=== PATIENT | female | born 1935 | race Caucasian/White ===

== ENCOUNTER 2019-09-13 13:52 | Inpatient (IN) | payer MEDICARE ==
[2019-09-13] MEDS ORDERED: SODIUM CHLORIDE 0.9% 500 ML 500 ML IV STA (14:54)
[2019-09-13 15:14] LABS: Basophils % (A) 0 %; Eosinophils # (A) 0.1 k/uL (0-0.7); Eosinophils % (A) 1 %; HCT 33.3 % (34.0-46.0); HGB 10.9 gm/dL (11.4-16.0); Lymphocytes # (A) 1.1 k/uL (1.0-4.8); Lymphocytes % (A) 11 %; MCH 29.2 pg (25.0-35.0); MCHC 32.7 g/dL (31.0-37.0); MCV 89.5 fL (80.0-100.0); Mean Platelet Volume 7.9; Monocytes # (A) 0.4 k/uL (0-1.0); Monocytes % (A) 5 %; Neutrophils # (A) 7.6 k/uL (1.3-7.7); Neutrophils % (A) 81 %; Platelet Count 306 k/uL (150-450); RBC 3.72 m/uL (3.80-5.40); RDW 14.2 % (11.5-15.5); WBC 9.5 k/uL (3.8-10.6)
--- NOTE | 2019-09-13 15:16 | ED ---
General Adult HPI <Danny Covarrubias - Last Filed: 09/13/19 16:59> - General Source: patient, family Mode of arrival: wheelchair Limitations: no limitations <Hilda Noguera - Last Filed: 09/13/19 17:43> - General Chief complaint: Extremity Problem,Nontraumatic Stated complaint: leg swelling Time Seen by Provider: 09/13/19 14:13 - History of Present Illness Initial comments: Patient is an 84-year-old female, with history of Alzheimer's, presenting to the emergency department with her and daughter with complaints of a possible UTI as well as continued hip pain from a fall 3 weeks ago. History is obtained from patient's daughter and . Patient and were down in [place] approximately 3 weeks ago when patient had a series of 3 falls within one night. She was then admitted to local hospital for proximally 5 days for a UTI. states he thinks they did imaging of her hips and knees which showed no acute abnormalities. Patient has been receiving physical therapy at her house and she's been back home. She was able to walk on her own prior to this fall however since this fall she has not been able to walk. She is able to stand up with a walker and take a few small steps but that is it. She has had no other falls since then. The patient recently had lab work done approximately 5 days ago and it was revealed she had a UTI however she has not been treated with antibiotics yet. and daughter brings patient in today for continued hip pain as well as UTI. She has not been having fevers, no nausea or vomiting. She denies a headache. At rest, patient denies any pain anywhere. There are no other complaints at this time. Upon arrival to the ER, vital signs are stable. (Hilda Noguera) - Related Data Allergies Allergy/AdvReac Type Severity Reaction Status Date / Time No Known Allergies Allergy Verified 09/13/19 14:05 Review of Systems ROS Other: All systems not noted in ROS Statement are negative. <Danny Covarrubias - Last Filed: 09/13/19 16:59> ROS Other: All systems not noted in ROS Statement are negative. <Hilda Noguera - Last Filed: 09/13/19 17:43> ROS Statement: Those systems with pertinent positive or pertinent negative responses have been documented in the HPI. Past Medical History Past Medical History: Hypertension History of Any Multi-Drug Resistant Organisms: None Reported Additional Past Surgical History / Comment(s): thyroid removal, breast lump removed Past Psychological History: No Psychological Hx Reported Smoking Status: Former smoker Past Alcohol Use History: None Reported Past Drug Use History: None Reported <Hilda Noguera - Last Filed: 09/13/19 17:43> General Exam Limitations: no limitations <Hilda Noguera - Last Filed: 09/13/19 17:43> - General Exam Comments Initial Comments: GENERAL: Well-appearing, well-nourished and in no acute distress. HEAD: Atraumatic, normocephalic. EYES: Pupils equal round and reactive to light, extraocular movements intact, sclera anicteric, conjunctiva are normal. ENT: TMs normal, nares patent, oropharynx clear without exudates. Moist mucous membranes. NECK: Normal range of motion, supple without lymphadenopathy or JVD. LUNGS: Breath sounds clear to auscultation bilaterally and equal. No wheezes rales or rhonchi. HEART: Regular rate and rhythm without murmurs, rubs or gallops. ABDOMEN: Soft, nontender, normoactive bowel sounds. No guarding, no rebound. No masses appreciated. : Deferred EXTREMITIES: No pain with palpation of bilateral knees or upper legs. Mild pain with pressure of the left and right hip. Patient does have full range of motion of both knees. Full range of motion of left hip. Pain with range of motion of the right hip. There is a notable leg leg difference with the right side elevated more than the left. No pitting or edema. No clubbing or cyanosis. NEUROLOGICAL: Normal speech. PSYCH: Normal mood, normal affect. SKIN: Warm, Dry, normal turgor, no rashes or lesions noted. (Hilda Noguera) Course Vital Signs 09/13/19 09/13/19 14:00 17:11 Temperature 98.0 F 98.2 F Pulse Rate 72 74 Respiratory 16 16 Rate Blood Pressure 127/72 133/76 O2 Sat by Pulse 98 96 Oximetry Medical Decision Making - Lab Data Result diagrams: 09/13/19 14:55 09/13/19 14:55 <Danny Covarrubias - Last Filed: 09/13/19 16:59> - Lab Data Result diagrams: 09/13/19 14:55 09/13/19 14:55 <Hilda Noguera - Last Filed: 09/13/19 17:43> - Medical Decision Making 84-year-old female with fall which occurred approximately 3 weeks ago. Patient has right femoral neck fracture which does appear old on x-ray. I discussed case both with orthopedics Dr. Lopez as well as her covering for [facility] physician Dr. Galloway. Patient will be admitted to orthopedics with internal medicine on consult. (Danny Covarrubias) Patient is an 84-year-old female presenting for a possible UTI as well as hip pain. Patient a fall 3 weeks ago in [place]. She's been receiving at home PT without improvement in her symptoms. As she has been unable to ambulate on her own. Vital signs are stable. On exam patient has a notable labeling difference with elevation of the right side. X-rays reveal a right femoral neck fracture. Recent urine cultures were reviewed and shows a positive UTI. Patient was started on 1 g of Rocephin as she has not been treated for this yet. Patient was also given pain medicine. Case was discussed with Dr. Covarrubias. Patient will be admitted under Dr. Lopez with consult to medicine. Patient and are in agreement with this plan of care. We will continue with antibiotics for UTI as well as pain control. (Hilda Noguera) - Lab Data Lab Results 09/13/19 09/13/19 Range/Units 14:55 14:55 WBC 9.5 (3.8-10.6) k/uL RBC 3.72 L (3.80-5.40) m/uL Hgb 10.9 L (11.4-16.0) gm/dL Hct 33.3 L (34.0-46.0) % MCV 89.5 (80.0-100.0) fL MCH 29.2 (25.0-35.0) pg MCHC 32.7 (31.0-37.0) g/dL RDW 14.2 (11.5-15.5) % Plt Count 306 (150-450) k/uL Neutrophils % 81 % Lymphocytes % 11 % Monocytes % 5 % Eosinophils % 1 % Basophils % 0 % Neutrophils # 7.6 (1.3-7.7) k/uL Lymphocytes # 1.1 (1.0-4.8) k/uL Monocytes # 0.4 (0-1.0) k/uL Eosinophils # 0.1 (0-0.7) k/uL Basophils # 0.0 (0-0.2) k/uL Sodium 137 (137-145) mmol/L Potassium 4.8 (3.5-5.1) mmol/L Chloride 106 (98-107) mmol/L Carbon Dioxide 26 (22-30) mmol/L Anion Gap 5 mmol/L BUN 20 H (7-17) mg/dL Creatinine 0.86 (0.52-1.04) mg/dL Est GFR (CKD-EPI)AfAm 72 (>60 ml/min/1.73 sqM) Est GFR (CKD-EPI)NonAf 62 (>60 ml/min/1.73 sqM) Glucose 107 H (74-99) mg/dL Calcium 9.4 (8.4-10.2) mg/dL Total Bilirubin 0.5 (0.2-1.3) mg/dL AST 41 H (14-36) U/L ALT 32 (4-34) U/L Alkaline Phosphatase 85 (38-126) U/L Total Protein 6.1 L (6.3-8.2) g/dL Albumin 3.4 L (3.5-5.0) g/dL Disposition <Danny Covarrubias - Last Filed: 09/13/19 16:59> Decision Date: 09/13/19 Decision Time: 17:04 <Hilda Noguera - Last Filed: 09/13/19 17:43> Clinical Impression: Fracture, intertrochanteric, right femur, UTI (urinary tract infection) Disposition: ADMITTED IP TO THIS [facility] Condition: Stable
[2019-09-13 15:19] LABS: Albumin 3.4 g/dL (3.5-5.0); Calcium 9.4 mg/dL (8.4-10.2); Potassium 4.8 mmol/L (3.5-5.1); Total Bilirubin 0.5 mg/dL (0.2-1.3); Total Protein 6.1 g/dL (6.3-8.2)
[2019-09-13] MEDS ORDERED: cefTRIAXone IN SWFI 1,000 MG/10 ML SYRINGE IVP STA (15:24)
--- NOTE | 2019-09-13 15:59 | XR ---
EXAMINATION TYPE: XR pelvis AP view, XR Hip Bilateral Complete DATE OF EXAM: 09/13/2019 CLINICAL HISTORY: Pain and fall 3 weeks ago TECHNIQUE: A single AP view of the pelvis is obtained. Views of the bilateral hips were also obtained . COMPARISON: None. FINDINGS: There is an impacted right intertrochanteric hip fracture with cephalad displacement of the distal fracture fragment nearly 1 cm and 1.1 cm foreshortening. This appears noncomminuted. The left hip appears intact. There is diffuse osseous demineralization. No additional pelvic fracture is seen . Moderate bilateral arthropathy of the hips. IMPRESSION: Acute, impacted, foreshortened, cranially displaced right intertrochanteric noncomminuted hip fracture.
--- NOTE | 2019-09-13 15:59 | XR ---
EXAMINATION TYPE: XR chest 1V DATE OF EXAM: 09/13/2019 COMPARISON: NONE HISTORY: Fall with subsequent chest pain TECHNIQUE: Single frontal view of the chest is obtained. FINDINGS: There is diffuse osseous demineralization. There is no focal air space opacity, pleural ef fusion, or pneumothorax seen. The cardiac silhouette size is mildly enlarged. The osseous structur es are intact. Slight right hemidiaphragm elevation is incidentally noted and may be physiologic. IMPRESSION: No acute process.
[2019-09-13] MEDS ORDERED: MORPHINE SULFATE 4 MG/ML SYRINGE IVP STA (16:20)
[2019-09-13] MEDS ORDERED: ONDANSETRON 4 MG/2 ML VIAL IVP STA (16:20)
[2019-09-13] MEDS ORDERED: ONDANSETRON 4 MG/2 ML VIAL IVP PRN (17:00)
[2019-09-13] MEDS ORDERED: NALOXONE 0.4 MG/ML 1 ML VIAL IV PRN (17:00)
[2019-09-13] MEDS ORDERED: traMADol 50 MG TAB PO PRN (17:00)
[2019-09-13] MEDS ORDERED: MORPHINE SULFATE 4 MG/ML SYRINGE IV PRN (17:00)
[2019-09-13] MEDS ORDERED: SODIUM CHLORIDE 0.9% 1,000 ML IV SCH (17:00)
[2019-09-13] MEDS ORDERED: ACETAMINOPHEN TAB 325 MG TAB PO PRN (17:00)
[2019-09-13 17:24] LABS: Amorphous Sediment,Urine Rare /hpf; Appearance,Urine Clear (Clear); Bilirubin,Urine Negative (Negative); Blood,Urine Negative (Negative); Color,Urine Yellow; Glucose,Urine (UA) Negative (Negative); Ketones,Urine Negative (Negative); Leukocyte Esterase,Urine Trace (Negative); Mucus,Urine Rare /hpf; Nitrite,Urine Negative (Negative); PH, Urine 5.5 (5.0-8.0); Protein,Urine Negative (Negative); RBC,Urine 1 /hpf (0-5); Specific Gravity,Urine 1.018 (1.001-1.035); Squamous Epithelial Cell,Urine 1 /hpf (0-4); Urobilinogen,Urine <2.0 mg/dL (<2.0); WBC,Urine 1 /hpf (0-5)
--- NOTE | 2019-09-13 18:29 | P.HPOR ---
History of Present Illness H&P Date: 09/13/19 This patient is an 84-year-old female with past medical history of Alzheimer's that presented to [facility] ER today with her and daughter with complaints of right lower extremity pain and swelling, as well as a possible UTI. All history is obtained from the patient's and daughter, who are bedside. The patient's daughter states that 3 weeks ago, while the patient was in [place], the patient fell 3 different times within one day. The patient states he was present during these falls, and after the third fall she was unable to ambulate. Therefore, the patient's called EMS. She was taken to a hospital in [place], where the patient was admitted. The patient's family states they believe that x-rays were performed at this hospital admission, although they are unsure. The patient was discharged from this hospital stay with home physical therapy. The patient's daughter and states she has been unable to ambulate following this fall 3 weeks ago. She has been requiring assistance for transfers and has been using a wheelchair. She is ambulatory at baseline and does not require use of a walker or cane. The patient's daughter states her home physical therapist had mentioned yesterday that her right lower extremity appeared shortened. The patient's family called her primary care physician today, and it was recommended that she present to the emergency department for evaluation. On arrival to the emergency department, x- rays were taken of the right hip and revealed a right hip fracture. The patient was admitted under the care of Dr. Lopez with consult a placed to internal medicine for medical management and clearance. At the time of my exam, the patient states her right hip is mildly painful. There are no additional complaints. Vital signs stable. Past Medical History Past Medical History: Hypertension History of Any Multi-Drug Resistant Organisms: None Reported Additional Past Surgical History / Comment(s): thyroid removal, breast lump removed Past Psychological History: No Psychological Hx Reported Smoking Status: Former smoker Past Alcohol Use History: None Reported Past Drug Use History: None Reported Medications and Allergies Allergies Allergy/AdvReac Type Severity Reaction Status Date / Time No Known Allergies Allergy Verified 09/13/19 14:05 Physical Examination On examination, the patient is lying in bed in no apparent distress. Family is bedside. Her head appears normocephalic and atraumatic. Her breathing appears nonlabored. On inspection of the bilateral upper extremities, there is no obvious deformity or signs of trauma. On inspection of the right lower extremity, there is increased swelling compared to the contralateral leg. There is mild pain on palpation of the right hip. No pain on palpation of the knee, lower leg, ankle. No pain on palpation of the calf. Right lower extremity is warm and well-perfused, with brisk capillary refill distally. Dorsalis pedis pulse palpable. Patient has good strength and range of motion of her bilateral ankles. Motor and sensory function appear to be intact of the right lower ext remity. Results Right hip x-ray 09/13/2019: Displaced femoral neck fracture - Labs Labs: Abnormal Lab Results - Last 24 Hours (Table) 09/13/19 09/13/19 09/13/19 Range/Units 14:55 14:55 17:05 RBC 3.72 L (3.80-5.40) m/uL Hgb 10.9 L (11.4-16.0) gm/dL Hct 33.3 L (34.0-46.0) % BUN 20 H (7-17) mg/dL Glucose 107 H (74-99) mg/dL AST 41 H (14-36) U/L Total Protein 6.1 L (6.3-8.2) g/dL Albumin 3.4 L (3.5-5.0) g/dL Ur Leukocyte Esterase Trace H (Negative) Amorphous Sediment Rare H (None) /hpf Urine Mucus Rare H (None) /hpf H & H 09/13/19 Range/Units 14:55 Hgb 10.9 L (11.4-16.0) gm/dL Hct 33.3 L (34.0-46.0) % Result Diagrams: 09/13/19 14:55 09/13/19 14:55 Assessment and Plan Assessment: Displaced right femoral neck fracture Plan: - I discussed the clinical and imaging findings with the patient, her daughter, and her . We discussed nonoperative versus operative treatment, and the patient's family would like to move forward with operative treatment at this time. Therefore a right hip hemiarthroplasty is recommended. We will plan for surgery tomorrow afternoon with Dr. Lopez, pending medical clearance and consent. - Strict nonweightbearing of the right lower extremity. - PRN pain management. - NPO diet at midnight. Patient discussed with Dr. Lopez.
[2019-09-13 21:09] LABS: INR 0.9 (<1.2); Prothrombin Time 9.7 sec (9.0-12.0)
[2019-09-14] MEDS: LOSARTAN 50 MG TAB PO SCH (08:38)
[2019-09-14] MEDS: PRAVASTATIN SODIUM 20 MG TAB PO SCH (08:38)
[2019-09-14] MEDS: DONEPEZIL 5 MG TAB PO SCH (09:06)
--- NOTE | 2019-09-14 09:24 | P.CONS ---
History of Present Illness - Reason for Consult Consult date: 09/14/19 Medical management - History of Present Illness This is an 84-year-old female patient of Dr. Christine with past mental history of Alzheimer's dementia, hypertension, hyperlipidemia, hypothyroidism, vitamin D deficiency. Patient was staying in [facility] 3 weeks ago she had 3 falls at different times during the day. The patient's was present during these falls. On the third fall she was unable to ambulate. Patient was taken by ambulance to the hospital for evaluation. X-rays were done but nothing was reported abnormal and patient was treated for urinary tract infection now, 3 weeks later, patient is back in [place] and she continues to require assistance for transfers and has been using a wheelchair. Normally she is ambulatory without wheelchair walker or cane. Patient has home care in place and physical therapist noticed that her right leg was shortened and patient's family contacted their PCP and was recommended the patient come into the hospital for evaluation. X-ray of the right hip revealed a right hip fracture. Chest x-ray showed no acute cardio pulmonary process. WBC 9.5, hemoglobin 10.9, platelet count 306, INR 0.9, BUN 20 creatinine 0.86, left lites within normal limits, AST 41, albumin 3.4, blood sugar 107, urinalysis negative for infection. Patient was found to be afebrile, heart rate 71, blood pressure 117/70 pulse ox 94% on room air. At the time of evaluation, patient is resting in bed and appears to be comfortable. She denies having any pain at this time and is able to answer simple questions appropriately but unable to provide history. Patient is currently living at home with her . EKG is a sinus rhythm with left axis deviation. Patient started on Lopressor 25 mg twice daily. Review of Systems Constitutional: Denies chills, Denies fever, Denies poor appetite Eyes: denies blurred vision, denies pain Ears, nose, mouth and throat: Denies dental pain, Denies headache, Denies nasal congestion, Denies nasal discharge, Denies sore throat, Denies vertigo Cardiovascular: Denies chest pain, Denies decreased exercise tolerance, Denies dyspnea on exertion, Denies leg edema, Denies orthopnea, Denies shortness of breath Respiratory: Denies cough, Denies cough with sputum, Denies dyspnea, Denies ex cessive sputum, Denies hemoptysis, Denies home oxygen, Denies wheezing Gastrointestinal: Denies abdominal pain, Denies loss of appetite, Denies nausea, Denies vomiting Genitourinary: Denies dysuria, Denies hematuria Musculoskeletal: Reports frequent falls, Reports gait dysfunction, Reports muscle weakness, Denies myalgias Integumentary: Denies pruritus, Denies rash, Denies wounds Neurological: Reports gait dysfunction, Denies change in mentation, Denies change in speech, Denies numbness, Denies seizures, Denies weakness Psychiatric: Denies anxiety, Denies depression Endocrine: Denies fatigue, Denies weight change Past Medical History Past Medical History: Dementia, Hyperlipidemia, Hypertension, Thyroid Disorder History of Any Multi-Drug Resistant Organisms: None Reported Additional Past Surgical History / Comment(s): thyroid removal, breast lump removed Past Anesthesia/Blood Transfusion Reactions: No Reported Reaction Past Psychological History: No Psychological Hx Reported Smoking Status: Former smoker Past Alcohol Use History: None Reported Past Drug Use History: None Reported - Past Family History Mother Family Medical History: Cancer Additional Family Medical History / Comment(s): Mother in her late 70s with history of colon cancer and lung cancer. Father Family Medical History: Myocardial Infarction (ID) Additional Family Medical History / Comment(s): Father at age 48 from a myocardial infarction. Brother(s) Additional Family Medical History / Comment(s): Patient had 3 brothers and one at age 48 from myocardial infarction, one from diabetes complication of one from some type of cancer. Sister(s) Additional Family Medical History / Comment(s): Patient had 3 sisters all . One from Alzheimer's dementia, one from CVA complication with history of Alzheimer's and a third one from Alzheimer's. Daughter(s) Additional Family Medical History / Comment(s): Patient has a total of 4 children, 2 sons and 2 daughters with no major medical problems. Medications and Allergies Home Medications Medication Instructions Recorded Confirmed Type Cholecalciferol (Vitamin D3) 2,000 unit PO DAILY 09/13/19 09/13/19 History [Vitamin D3] Donepezil [Aricept] 5 mg PO DAILY 09/13/19 09/13/19 History Levothyroxine Sodium [Synthroid] 25 mcg PO DAILY 09/13/19 09/13/19 History Losartan Potassium 100 mg PO DAILY 09/13/19 09/13/19 History OLANZapine [ZyPREXA] 2.5 mg PO AC-SUPPER 09/13/19 09/13/19 History Pravastatin Sodium [Pravachol] 20 mg PO DAILY 09/13/19 09/13/19 History amLODIPine [Norvasc] 5 mg PO DAILY 09/13/19 09/13/19 History Allergies Allergy/AdvReac Type Severity Reaction Status Date / Time No Known Allergies Allergy Verified 09/14/19 13:27 Physical Exam Vitals: Vital Signs Temp Pulse Pulse Resp BP BP Pulse Ox 09/14/19 07:00 98.4 F 67 16 111/60 95 09/14/19 00:27 98.5 F 71 14 117/70 94 L 09/13/19 19:18 98.1 F 76 14 116/64 94 L 09/13/19 17:11 98.2 F 74 16 133/76 96 09/13/19 14:00 98.0 F 72 16 127/72 98 Intake and Output 09/13/19 09/14/19 09/14/19 22:59 06:59 14:59 Intake Total 175 Output Total 325 Balance 175 -325 Intake: Intake, IV Titration 175 Amount Sodium Chloride 0.9% 1, 175 000 ml @ 50 mls/hr IV . Q20H [facility] Rx#:[id number] Output: Urine 325 Other: Voiding Method Indwelling Catheter Weight 68.039 kg Gen: This is an 84-year-old female. Patient is resting in bed and appears to be comfortable and in no acute distress. HEENT: Head is atraumatic, normocephalic. Pupils equal, round. Sclerae is anicteric. Conjunctiva pink. Mucous members of the mouth are somewhat dry. Dentition is in fair order. NECK: Supple. No JVD. No lymphadenopathy. No thyromegaly. LUNGS: Clear to auscultation. No wheezes or rhonchi. No intercostal retractions. HEART: Regular rate and rhythm. No murmur. ABDOMEN: Soft. Bowel sounds are present. No masses. No tenderness. EXTREMITIES: No pedal edema. No calf tenderness. Right leg is externally rotated and shortened. Dorsalis pedis +1 bilaterally. NEUROLOGICAL: Patient is awake, alert and oriented to self only. Cranial nerves 2 through 12 are grossly intact. Results CBC & Chem 7: 09/14/19 17:25 09/13/19 14:55 Labs: Abnormal Lab Results - Last 24 Hours (Table) 09/13/19 09/13/19 09/13/19 Range/Units 14:55 14:55 17:05 RBC 3.72 L (3.80-5.40) m/uL Hgb 10.9 L (11.4-16.0) gm/dL Hct 33.3 L (34.0-46.0) % BUN 20 H (7-17) mg/dL Glucose 107 H (74-99) mg/dL AST 41 H (14-36) U/L Total Protein 6.1 L (6.3-8.2) g/dL Albumin 3.4 L (3.5-5.0) g/dL Ur Leukocyte Esterase Trace H (Negative) Amorphous Sediment Rare H (None) /hpf Urine Mucus Rare H (None) /hpf Assessment and Plan Plan: 1. Right hip fracture with plan for right hemiarthroplasty today. Continue current pain management, PT and OT per orthopedics, incentive spirometry if patient is able to follow instructions. Most likely patient will require subacute rehab at discharge. Patient has been cleared medically for surgical intervention 2. Hypertension. Continue losartan with parameters, hold amlodipine as patient is currently on the low side. 3. Hyperlipidemia. Continue statin. 4. Alzheimer's dementia. Continue Aricept. 5. Hypothyroidism. Continue levothyroxine. 6. Vitamin D deficiency. Continue supplement. 7. DVT prophylaxis. 8. GI prophylaxis. Pepcid. 9. Recent urinary tract infection, completed course of antibiotics. Patient will be admitted to the hospital for a minimum of 2 night stay. Discharge plan: Most likely subacute rehab Impression and plan of care have been directed as dictated by the signing physician. Tory Rubio nurse practitioner acting as scribe for signing physician.
[2019-09-14] MEDS: SODIUM CHLORIDE 0.9% 1,000 ML IV SCH ×2 (11:04→22:26)
[2019-09-14] MEDS: METOPROLOL TARTRATE 25 MG TAB PO SCH ×2 (12:49→22:26)
[2019-09-14] MEDS ORDERED: IV FLUID CONTINUATION 1,000 ML IV ONE (13:13)
[2019-09-14] MEDS ORDERED: ONDANSETRON 4 MG/2 ML VIAL IVP ONE (13:26)
[2019-09-14] MEDS ORDERED: DEXAMETHASONE SOD PHOSPHATE 10 MG/ML 1 ML VIAL IV ONE (13:27)
[2019-09-14] MEDS ORDERED: ceFAZolin 1,000 MG VIAL ONE (13:43)
[2019-09-14] MEDS ORDERED: MIDAZOLAM 2 MG/2 ML VIAL ONE (13:43)
[2019-09-14] MEDS ORDERED: ePHEDrine SULFATE/0.9% NACL/PF 50 MG/5 ML SYRINGE IV ONE (13:43)
[2019-09-14] MEDS ORDERED: PROPOFOL 10 MG/ML 20 ML VIAL IV ONE (13:43)
[2019-09-14] MEDS ORDERED: fentaNYL (PF) 50 MCG/ML 2 ML AMP ONE (13:43)
[2019-09-14] MEDS ORDERED: ceFAZolin 3,000 MG in SODIUM CHLORIDE 0.9% IRRIGATIO 3,000 ML IRRIGATION ONE (14:22)
[2019-09-14] MEDS ORDERED: LACTATED RINGERS 1,000 ML IV ONE (15:31)
[2019-09-14] MEDS ORDERED: HYDROmorphone 0.5 MG/0.5 ML SYRINGE IVP PRN ×3 (15:51)
[2019-09-14] MEDS ORDERED: HYDROcodone/APAP 5-325MG 1 EACH TAB PO PRN ×2 (15:51)
--- NOTE | 2019-09-14 16:06 | P.OP ---
Date of Procedure: 09/14/19 Preoperative Diagnosis: 1. Subacute right subcapital femoral neck fracture 2. Alzheimer's dementia Postoperative Diagnosis: Same Procedure(s) Performed: Cemented right hip hemiarthroplasty Anesthesia: spinal Surgeon: Karlos Lopez Sustainability Analyst #1: Peyton Ramirez Estimated Blood Loss (ml): 75 IV fluids (ml): 1,000 Urine output (ml): 250 Pathology: other (Femoral head to pathology) Condition: stable Disposition: PACU Indications for Procedure: The patient is very pleasant 84-year-old female with a medical history significant for Alzheimer's dementia who sustained a fall about 4 weeks ago while in [place]. She was admitted to the hospital with urinary tract infection and x-rays were normal. She is not able to walk since that time. She's had increasing pain and deformity in the right leg and she presented to the emergency department yesterday where x-rays showed a subacute appearing subcapital femoral neck fracture. She was admitted under my care and seen by internal medicine for preoperative clearance. I met with the family to discuss treatment options. My recommendation was to perform a cemented hemiarthroplasty. The patient and her family agreed to this. We discussed potential risks and complications of surgery including but not limited to risk of anesthesia, superficial infection, deep infection, delayed wound healing, intraoperative fracture, postoperative fracture, hip dislocation, limb length discrepancy, and inability to regain preinjury level of function, DVT, PE, other medical complications, and possibly loss of life. The patient and her family understand these Locations and also with knowledge that other less common competitions are possible. They provided their consent to go forward with surgery. Description of Procedure: The patient is in front operative holding and the correct right hip was marked with my initials. I reviewed the consent form with the patient and her family. All their questions were answered. The patient was then brought back to the operating room by anesthesia. She was positioned on the OR table where a spinal anesthetic and preoperative antibiotics were given. The patient was then carefully positioned in the lateral decubitus position with the right side up. She was secured to the OR table with a Montral frame. All bony prominences were well-padded including the fibular head. An axillary roll was placed. The right leg was then prepped and draped in standard sterile fashion using an Ioban impregnated adhesive. A timeout was then performed identifying the correct patient, operative extremity, and procedure. Next I began by outlining a standard approach with a skin marker for a posterolateral approach to the hip. Skin incision was made with a scalpel and dissection was carried down carefully through the subcutaneous tissue with electrocautery. The fascia lawanda was identified and incised distally in line with the skin incision and proximally the muscle fibers of gluteus lenny were bluntly dissected with my finger. A Charnley retractor was placed deep to the fascia lawanda. Remnants of the trochanteric bursa were elevated off the posterior femur with electrocautery. A right angle retractor was placed under the abductors and the leading edge of the piriformis tendon was identified. A medium Rincon elevator was used to develop the interval between the short external rotators and hip capsule. The short external rotators and piriformis were then released off the posterior femur using electrocautery. The posterior hip capsule was then teed. There was no hemarthrosis in the hip joint confirming a subacute fracture. The head was easily removed and handed off to the back table for was sized and sent to pathology. The proximal femur was then exposed. A neck cut was made 1 thumb breath above the lesser trochanter. A box osteotome was used to gain entrance to the canal taking care to stay lateral to avoid varus malpositioning of the stem. A canal finder was then placed down the shaft of the femur and I reamed up to an 11 mm reamer which engage the diaphysis of the femur. I then sequentially broached in 1 mm increments until an 11 mm broach felt stable. A calcar planar was used to bring the neck cut flush with the broach. I then attempted to reduce the hip with a negative offset head was unable to reduce the hip. Due to her hip fracture being subacute I decided to remove the 11 mm broach, countersink a 10 mm broach and bring the level of the neck cut down several millimeters. By doing this I was able to easily reduce a standard offset hip. It felt stable in all planes of motion. The hip was then carefully dislocated with a shoulder hook. A cement restrictor was placed 2 cm distal to the tip of the stem. The proximal femur was irrigated with a pulsatile lavage and brush. A moist Ray-Camila was placed in the acetabulum. Cement was then mixed and pressurized in the proximal femur. A 10 mm stem was dispensed and gently tapped into place. Appropriate version was held until the cement had hardened. All cement remnant was removed. I once again trialed with a standard offset 43 mm head which felt stable. The hip was dislocated one final time and a trial head was removed. The wound was thoroughly irrigated using sterile saline. The Munroe taper was dried with a clean sponge and the final head was gently tapped in place to engage the Munroe taper. The hip was carefully reduced and was felt to be stable. The posterior hip capsule was closed with interrupted 0 Vicryl. The piriformis and short external rotators were repaired to the posterior femur using #2 Ethibond. The fascia lawanda was closed with a running Quill suture. The deep subcu tenderness fat layer was reapproximated using 0 Vicryl. The superficial subcutaneous layer was closed with interrupted 2-0 Vicryl. Skin was closed with a running barbed mono filament suture and sealed with Cyanoacrylate adhesive. A sterile dressing was applied. All instrument, sponge, and sharp counts were correct. The patient was awoken from her anesthetic, transferred to a rhenrico and brought to recovery having procedure well. In the recovery room x- rays showed a stable cemented hemiarthroplasty with no fractures in a reduced hip. Peyton Chamberlain PA-C was required as a skilled perinatal breastfeeding assistant for patient positioning surgical exposure, retraction, placement of implant, closure of wound, and a provisional dressing. Plan: The patient is going to be admitted for IV antibiotics, internal medicine evaluation, therapy and discharge planning. She'll need 2 doses postoperative antibiotics and DVT prophylaxis with Lovenox. She can weight-bear as tolerated on her right leg and should follow posterior hip precautions.
--- NOTE | 2019-09-14 16:09 | XR ---
EXAMINATION TYPE: XR Hip Limited RT DATE OF EXAM: 09/14/2019 CLINICAL HISTORY: Right hip pain and osteoarthritis. TECHNIQUE: Single AP portable view of right hip is obtained immediately postoperatively. COMPARISON: None. FINDINGS: Metallic hardware from right hip arthroplasty is seen and appears satisfactory in alignment and position. There is evidence of recent surgery with subcutaneous gas noted laterally. IMPRESSION: Metallic hardware from right hip arthroplasty is satisfactory in position.
[2019-09-14] MEDS: OLANZapine 2.5 MG TAB PO SCH (16:59)
[2019-09-14 18:10] LABS: Basophils % (A) 0 %; Eosinophils # (A) 0.1 k/uL (0-0.7); Eosinophils % (A) 0 %; HCT 33.8 % (34.0-46.0); HGB 10.8 gm/dL (11.4-16.0); Lymphocytes # (A) 0.5 k/uL (1.0-4.8); Lymphocytes % (A) 4 %; MCH 29.4 pg (25.0-35.0); MCHC 31.9 g/dL (31.0-37.0); MCV 92.3 fL (80.0-100.0); Monocytes # (A) 0.2 k/uL (0-1.0); Monocytes % (A) 2 %; Neutrophils # (A) 12.7 k/uL (1.3-7.7); Neutrophils % (A) 94 %; Platelet Count 284 k/uL (150-450); RBC 3.66 m/uL (3.80-5.40); WBC 13.5 k/uL (3.8-10.6)
[2019-09-14] MEDS: SENNOSIDES-DOCUSATE SODIUM 1 EACH TAB PO SCH (20:22)
[2019-09-15] MEDS: LEVOTHYROXINE 25 MCG TAB PO SCH (05:05)
[2019-09-15] MEDS: LOSARTAN 50 MG TAB PO SCH (08:20)
[2019-09-15] MEDS: METOPROLOL TARTRATE 25 MG TAB PO SCH ×2 (08:20→20:43)
[2019-09-15] MEDS: DONEPEZIL 5 MG TAB PO SCH (08:20)
[2019-09-15] MEDS: PRAVASTATIN SODIUM 20 MG TAB PO SCH (08:20)
[2019-09-15] MEDS: ENOXAPARIN 40 MG/0.4 ML SYRINGE SQ SCH (08:20)
[2019-09-15] MEDS: SODIUM CHLORIDE 0.9% 1,000 ML IV SCH ×2 (09:45→17:40)
--- NOTE | 2019-09-15 11:26 | P.PN ---
Subjective Progress Note Date: 09/15/19 This patient is an 84-year-old female that is status-post right hip hemiarthroplasty yesterday on 09/14/[address] Lopez. Patient is examined bedside this morning. She states she is in no pain currently. She states she overall feels well. She has not been up with physical therapy yet. Patient denies chest pain, shortness of breath, nausea, vomiting, fevers, chills, numbness or tingling of the right lower extremity. She has no complaints today. Vital signs stable. Objective - Vital Signs Vital signs: Vital Signs Temp 97.7 F 09/15/19 07:34 Pulse 61 09/15/19 07:34 Resp 16 09/15/19 07:34 BP 143/77 09/15/19 07:34 Pulse Ox 97 09/15/19 07:34 Intake & Output 09/14/19 09/15/19 09/15/19 18:59 06:59 18:59 Intake Total 1301 300 100 Output Total 325 200 300 Balance 976 100 -200 Weight 68.039 kg Intake: IV 1101 Intake, IV Titration 300 Amount Sodium Chloride 0.9% 1, 300 000 ml @ 100 mls/hr IV . Q10H [facility] Rx#:[id number] Oral 200 100 Output: Urine 250 200 300 Uretheral (Mckeon) 300 Estimated Blood Loss 75 Other: Voiding Method Indwelling Catheter Indwelling Catheter Indwelling Catheter - Exam On examination, the patient is lying in bed in no apparent distress. She is a lert and oriented 3. Mckeon catheter in place. On inspection of the right lower extremity, there is a clean, dry, intact surgical dressing in place of the right hip. There is no surrounding erythema, warmth, ecchymosis. There are no signs of infection. The right lower extremity is warm and well perfused with brisk capillary refill distally. Patient has good strength and motion of the right an kle. Motor and sensory function appear to be intact of the right lower extremity. The calf is soft and nontender to palpation. - Labs CBC & Chem 7: 09/14/19 17:25 09/13/19 14:55 Labs: Abnormal Lab Results - Last 24 Hours (Table) 09/14/19 Range/Units 17:25 WBC 13.5 H (3.8-10.6) k/uL RBC 3.66 L (3.80-5.40) m/uL Hgb 10.8 L (11.4-16.0) gm/dL Hct 33.8 L (34.0-46.0) % Neutrophils # 12.7 H (1.3-7.7) k/uL Lymphocytes # 0.5 L (1.0-4.8) k/uL Assessment and Plan Assessment: Displaced right femoral neck fracture status-post right hip hemiarthroplasty on 09/14/2019. Postoperative day #1. Plan: - Patient may weight-bear as tolerated on the operative leg. Up with assistance, up with a walker. - Physical therapy for gait and balance training. - Continue PRN pain management. - 2 doses of postoperative antibiotics complete. - Lovenox for DVT prophylaxis. - Internal medicine for perioperative medical management. - Anticipate discharge home with home services versus short-term rehab in next 1-2 days. Patient's has voiced his preference to take the patient home. We will await physical therapy evaluation. Social work following. Patient discussed with Dr. Lopez.
--- NOTE | 2019-09-15 14:32 | P.PN ---
Subjective Progress Note Date: 09/15/19 This is an 84-year-old female patient of Dr. Christine with past mental history of Alzheimer's dementia, hypertension, hyperlipidemia, hypothyroidism, vitamin D deficiency. Patient was staying in [facility] 3 weeks ago she had 3 falls at different times during the day. The patient's was present during these falls. On the third fall she was unable to ambulate. Patient was taken by ambulance to the hospital for evaluation. X-rays were done but nothing was reported abnormal and patient was treated for urinary tract infection now, 3 weeks later, patient is back in [place] and she continues to require assistance for transfers and has been using a wheelchair. Normally she is ambulatory without wheelchair walker or cane. Patient has home care in place and physical therapist noticed that her right leg was shortened and patient's family contacted their PCP and was recommended the patient come into the hospital for evaluation. X-ray of the right hip revealed a right hip fracture. Chest x-ray showed no acute cardio pulmonary process. WBC 9.5, hemoglobin 10.9, platelet count 306, INR 0.9, BUN 20 creatinine 0.86, left lites within normal limits, AST 41, albumin 3.4, blood sugar 107, urinalysis negative for infection. Patient was found to be afebrile, heart rate 71, blood pressure 117/70 pulse ox 94% on room air. At the time of evaluation, patient is resting in bed and appears to be comfortable. She denies having any pain at this time and is able to answer simple questions appropriately but unable to provide history. Patient is currently living at home with her . EKG is a sinus rhythm with left axis deviation. Patient started on Lopressor 25 mg twice daily. 3/: Patient is status post right hip arthroplasty. She has had no postop complications. Mckeon catheter was removed this morning. She is a 1 person assist to get to a chair. She is eating and drinking well. Patient has been afebrile, blood pressure 143/77, heart rate 61, pulse ox 97% on room air. WBC 13.5, hemoglobin 10.8 and platelet count 284. Discussed discharge planning with patient's at the bedside and he states that she will be going to subacute rehab and social work is following up. Blood pressure is rising and patient will be resumed on amlodipine which was held yesterday. Objective - Vital Signs Vital signs: Vital Signs Temp 97.7 F 09/15/19 07:34 Pulse 61 09/15/19 07:34 Resp 16 09/15/19 07:34 BP 143/77 09/15/19 07:34 Pulse Ox 97 09/15/19 07:34 Intake & Output 09/14/19 09/15/19 09/15/19 18:59 06:59 18:59 Intake Total 1301 300 100 Output Total 325 200 300 Balance 976 100 -200 Weight 68.039 kg Intake: IV 1101 Intake, IV Titration 300 Amount Sodium Chloride 0.9% 1, 300 000 ml @ 100 mls/hr IV . Q10H [facility] Rx#:[id number] Oral 200 100 Output: Urine 250 200 300 Uretheral (Mckeon) 300 Estimated Blood Loss 75 Other: Voiding Method Indwelling Catheter Indwelling Catheter Indwelling Catheter - Exam Review of Systems Constitutional: Denies chills, Denies fever, Denies poor appetite Ears, nose, mouth and throat: Denies dental pain, Denies headache, Denies nasal congestion, Denies nasal discharge, Denies sore throat, Denies vertigo Cardiovascular: Denies chest pain, Denies decreased exercise tolerance, Denies dyspnea on exertion, Denies leg edema, Denies orthopnea, Denies shortness of breath Respiratory: Denies cough, Denies cough with sputum, Denies dyspnea, Denies excessive sputum, Denies hemoptysis, Denies home oxygen, Denies wheezing Gastrointestinal: Denies abdominal pain, Denies loss of appetite, Denies nausea, Denies vomiting Genitourinary: Denies dysuria, Denies hematuria Musculoskeletal: Reports frequent falls, Reports gait dysfunction, Reports muscle weakness, Denies myalgias Integumentary: Denies pruritus, Denies rash, Denies wounds Neurological: Reports gait dysfunction, Denies change in mentation, Denies change in speech, Denies numbness, Denies seizures, Denies weakness Psychiatric: Denies anxiety, Denies depression Endocrine: Denies fatigue, Denies weight change Physical examination Gen: This is an 84-year-old female. Patient is resting in chair and appears to be comfortable and in no acute distress. HEENT: Head is atraumatic, normocephalic. Pupils equal, round. Sclerae is anicteric. Conjunctiva pink. Mucous members of the mouth are moist. Dentition is in fair order. NECK: Supple. No JVD. No lymphadenopathy. No thyromegaly. LUNGS: Clear to auscultation. No wheezes or rhonchi. No intercostal retractions. HEART: Regular rate and rhythm. No murmur. ABDOMEN: Soft. Bowel sounds are present. No masses. No tenderness. EXTREMITIES: No pedal edema. No calf tenderness. Right hip dressing intact with no significant breakthrough bleeding or drainage. Dorsalis pedis +1 bilaterally. NEUROLOGICAL: Patient is awake, alert and oriented to self only. Cranial nerves 2 through 12 are grossly intact. - Labs CBC & Chem 7: 09/14/19 17:25 09/13/19 14:55 Labs: Abnormal Lab Results - Last 24 Hours (Table) 09/14/19 Range/Units 17:25 WBC 13.5 H (3.8-10.6) k/uL RBC 3.66 L (3.80-5.40) m/uL Hgb 10.8 L (11.4-16.0) gm/dL Hct 33.8 L (34.0-46.0) % Neutrophils # 12.7 H (1.3-7.7) k/uL Lymphocytes # 0.5 L (1.0-4.8) k/uL Assessment and Plan Plan: 1. Right hip fracture status post right hemiarthroplasty. Continue current pain management, PT and OT per orthopedics, incentive spirometry if patient is able to follow instructions. Most likely patient will require subacute rehab at discharge. Patient has been cleared medically for surgical intervention 2. Hypertension. Continue losartan with parameters, resume amlodipine, Lopressor 25 mg twice daily as been added. 3. Hyperlipidemia. Continue statin. 4. Alzheimer's dementia. Continue Aricept. 5. Hypothyroidism. Continue levothyroxine. 6. Vitamin D deficiency. Continue supplement. 7. DVT prophylaxis. 8. GI prophylaxis. Pepcid. 9. For urinary tract infection, completed course of antibiotics. Discharge plan: subacute rehab Impression and plan of care have been directed as dictated by the signing physician. Tory Rubio nurse practitioner acting as scribe for signing physician.
[2019-09-15] MEDS: amLODIPine 5 MG TAB PO SCH (17:40)
[2019-09-15] MEDS: OLANZapine 2.5 MG TAB PO SCH (17:40)
[2019-09-15] MEDS: SENNOSIDES-DOCUSATE SODIUM 1 EACH TAB PO SCH (19:34)
[2019-09-16] MEDS: SODIUM CHLORIDE 0.9% 1,000 ML IV SCH (03:10)
[2019-09-16] MEDS: LEVOTHYROXINE 25 MCG TAB PO SCH (05:32)
[2019-09-16 08:16] LABS: Albumin 2.5 g/dL (3.5-5.0); Calcium 8.3 mg/dL (8.4-10.2); Potassium 3.8 mmol/L (3.5-5.1); Total Bilirubin 0.6 mg/dL (0.2-1.3); Total Protein 4.9 g/dL (6.3-8.2)
[2019-09-16] MEDS: LOSARTAN 50 MG TAB PO SCH (08:32)
[2019-09-16] MEDS: ENOXAPARIN 40 MG/0.4 ML SYRINGE SQ SCH (08:32)
[2019-09-16] MEDS: DONEPEZIL 5 MG TAB PO SCH (08:32)
[2019-09-16] MEDS: PRAVASTATIN SODIUM 20 MG TAB PO SCH (08:32)
[2019-09-16] MEDS: METOPROLOL TARTRATE 25 MG TAB PO SCH (08:32)
[2019-09-16] MEDS: amLODIPine 5 MG TAB PO SCH (08:32)
[2019-09-16 08:43] VITALS: BP 128/70; PULSE 82; RESP 16; TEMP 98
--- NOTE | 2019-09-16 13:33 | P.PN ---
Subjective Progress Note Date: 09/16/19 This is an 84-year-old female patient of Dr. Christine with past mental history of Alzheimer's dementia, hypertension, hyperlipidemia, hypothyroidism, vitamin D deficiency. Patient was staying in [facility] 3 weeks ago she had 3 falls at different times during the day. The patient's was present during these falls. On the third fall she was unable to ambulate. Patient was taken by ambulance to the hospital for evaluation. X-rays were done but nothing was reported abnormal and patient was treated for urinary tract infection now, 3 weeks later, patient is back in [place] and she continues to require assistance for transfers and has been using a wheelchair. Normally she is ambulatory without wheelchair walker or cane. Patient has home care in place and physical therapist noticed that her right leg was shortened and patient's family contacted their PCP and was recommended the patient come into the hospital for evaluation. X-ray of the right hip revealed a right hip fracture. Chest x-ray showed no acute cardio pulmonary process. WBC 9.5, hemoglobin 10.9, platelet count 306, INR 0.9, BUN 20 creatinine 0.86, left lites within normal limits, AST 41, albumin 3.4, blood sugar 107, urinalysis negative for infection. Patient was found to be afebrile, heart rate 71, blood pressure 117/70 pulse ox 94% on room air. At the time of evaluation, patient is resting in bed and appears to be comfortable. She denies having any pain at this time and is able to answer simple questions appropriately but unable to provide history. Patient is currently living at home with her . EKG is a sinus rhythm with left axis deviation. Patient started on Lopressor 25 mg twice daily. 09/14: Patient is status post right hip arthroplasty. She has had no postop complications. Mckeon catheter was removed this morning. She is a 1 person assist to get to a chair. She is eating and drinking well. Patient has been afebrile, blood pressure 143/77, heart rate 61, pulse ox 97% on room air. WBC 13.5, hemoglobin 10.8 and platelet count 284. Discussed discharge planning with patient's at the bedside and he states that she will be going to subacute rehab and social work is following up. Blood pressure is rising and patient will be resumed on amlodipine which was held yesterday. 09/15: Patient has been afebrile, heart rate running in the 50s. Blood pressure 120/70, pulse ox 98% on room air. Patient denies having any pain to the right hip. She denies any shortness of breath. We anticipate she will be ready for discharge to subacute rehab today. Medication reconciliation has been reviewed. Objective - Vital Signs Vital signs: Vital Signs Temp 97.5 F L 09/15/19 19:33 Pulse 56 L 09/15/19 19:33 Resp 18 09/15/19 19:33 BP 140/64 09/15/19 20:40 Pulse Ox 97 09/15/19 19:33 Intake & Output 09/15/19 09/16/19 09/16/19 18:59 06:59 18:59 Intake Total 730 50 Output Total 300 Balance 430 50 Intake: Oral 490 50 Blood Product 240 Output: Urine 300 Uretheral (Mckeon) 300 Other: Voiding Method Indwelling Catheter Diaper # Voids 1 3 - Exam Review of Systems Constitutional: Denies chills, Denies fever, Denies poor appetite Ears, nose, mouth and throat: Denies dental pain, Denies headache, Denies nasal congestion, Denies nasal discharge, Denies sore throat, Denies vertigo Cardiovascular: Denies chest pain, Denies decreased exercise tolerance, Denies dyspnea on exertion, Denies leg edema, Denies orthopnea, Denies shortness of breath Respiratory: Denies cough, Denies cough with sputum, Denies dyspnea, Denies excessive sputum, Denies hemoptysis, Denies home oxygen, Denies wheezing Gastrointestinal: Denies abdominal pain, Denies loss of appetite, Denies nausea, Denies vomiting Genitourinary: Denies dysuria, Denies hematuria Musculoskeletal: denies gait dysfunction, Reports muscle weakness, Denies myalgias Integumentary: Denies pruritus, Denies rash, Denies wounds Neurological: Reports gait dysfunction, Denies change in mentation, Denies change in speech, Denies numbness, Denies seizures, Denies weakness Psychiatric: Denies anxiety, Denies depression Endocrine: Denies fatigue, Denies weight change Physical examination Gen: This is an 84-year-old female. Patient is resting in bed and appears to be comfortable and in no acute distress. HEENT: Head is atraumatic, normocephalic. Pupils equal, round. Sclerae is anicteric. Conjunctiva pink. Mucous members of the mouth are moist. Dentition is in fair order. NECK: Supple. No JVD. No lymphadenopathy. No thyromegaly. LUNGS: Clear to auscultation. No wheezes or rhonchi. No intercostal retractions. HEART: Regular rate and rhythm. No murmur. ABDOMEN: Soft. Bowel sounds are present. No masses. No tenderness. EXTREMITIES: No pedal edema. No calf tenderness. Right hip dressing intact with no significant breakthrough bleeding or drainage. Dorsalis pedis +1 bilaterally. NEUROLOGICAL: Patient is awake, alert and oriented to self only. Cranial nerves 2 through 12 are grossly intact. - Labs CBC & Chem 7: 09/14/19 17:25 09/16/19 07:43 Assessment and Plan Plan: 1. Right hip fracture status post right hemiarthroplasty. Continue current pain management, PT and OT per orthopedics, incentive spirometry if patient is able to follow instructions. Most likely patient will require subacute rehab at discharge. Patient has been cleared medically for surgical intervention 2. Hypertension. Continue losartan with parameters, resume amlodipine, Lopressor 25 mg twice daily as been added. 3. Hyperlipidemia. Continue statin. 4. Alzheimer's dementia. Continue Aricept. 5. Hypothyroidism. Continue levothyroxine. 6. Vitamin D deficiency. Continue supplement. 7. DVT prophylaxis. 8. GI prophylaxis. Pepcid. 9. For urinary tract infection, completed course of antibiotics. Discharge plan: [facility]. Patient is cleared medically for discharge. Medication reconciliation reviewed. Impression and plan of care have been directed as dictated by the signing physician. Tory Rubio nurse practitioner acting as scribe for signing physician.
--- NOTE | 2019-09-16 13:40 | P.DS ---
Providers Date of admission: 09/13/19 16:48 Expected date of discharge: 09/16/19 Attending physician: Karlos Lopez Consults: 09/13/19 17:00 Consult Physician Stat Consulting Provider: Estefany Galloway Consult Reason/Comments: Acute, impacted right hip fracture, UTI Do you want consulting provider notified?: Already Contacted Primary care physician: Isauro Sheppard [place] Hospital Course: This is an 84-year-old female with a past medical history of Alzheimer's dementia who presented to [facility] on 09/13/19 after falling and sustaining injury to the right hip about 3 weeks ago in [place]. On exam and x- ray in the emergency department she was found to have a right femoral neck fracture. The patient was admitted under the care of Dr. Lopez for surgical intervention and care with a consult placed to internal medicine for perioperative medical management. The patient is taken to surgery for hemiarthroplasty of the right hip. The procedure is performed without complication or sequelae. The patient is doing well postoperatively. Vital signs are stable on postop day #2. The patient is examined bedside this morning with Dr. Lopez. The patient states she is experiencing no pain in the right hip currently. She's been up with physical therapy and requiring minimal assistance with a walker. Mckeon catheter was removed yesterday morning. Patient has no new complaints or concerns. Vital signs stable. Patient is examined bedside. On inspection of the right hip, there is a clean, dry, intact surgical dressing in place. No drainage to the dressing. There is no surrounding erythema, warmth, fluctuance. There are no signs of infection. The right lower extremity is warm and well-perfused with brisk capillary refill distally. The patient has good strength and range of motion of the right ankle. Motor and sensory fracture intact of the right lower extremity. Abductor pillow is in place. The patient is discharged to subacute rehab today pending medical clearance. Please refer to the med rec for accurate list of medications. Patient Condition at Discharge: Stable Plan - Discharge Summary Discharge Rx Participant: No New Discharge Prescriptions: New Metoprolol Tartrate [Lopressor] 25 mg PO BID tab Sennosides-Docusate Sodium [Senokot-S] 2 each PO HS tab Docusate [Colace] 100 mg PO BID #60 capsule Enoxaparin [Lovenox] 40 mg SQ DAILY #28 syringe Hydrocodone/Acetaminophen [[place] 5-325] 1 tab PO Q8H PRN #30 tab PRN Reason: Pain Continue amLODIPine [Norvasc] 5 mg PO DAILY Levothyroxine Sodium [Synthroid] 25 mcg PO DAILY Donepezil [Aricept] 5 mg PO DAILY Pravastatin Sodium [Pravachol] 20 mg PO DAILY OLANZapine [ZyPREXA] 2.5 mg PO AC-SUPPER Losartan Potassium 100 mg PO DAILY Cholecalciferol (Vitamin D3) [Vitamin D3] 2,000 unit PO DAILY Discharge Medication List Cholecalciferol (Vitamin D3) [Vitamin D3] 2,000 unit PO DAILY 09/13/19 [History] Donepezil [Aricept] 5 mg PO DAILY 09/13/19 [History] Levothyroxine Sodium [Synthroid] 25 mcg PO DAILY 09/13/19 [History] Losartan Potassium 100 mg PO DAILY 09/13/19 [History] OLANZapine [ZyPREXA] 2.5 mg PO AC-SUPPER 09/13/19 [History] Pravastatin Sodium [Pravachol] 20 mg PO DAILY 09/13/19 [History] amLODIPine [Norvasc] 5 mg PO DAILY 09/13/19 [History] Docusate [Colace] 100 mg PO BID #60 capsule 09/16/19 [Rx] Enoxaparin [Lovenox] 40 mg SQ DAILY #28 syringe 09/16/19 [Rx] Hydrocodone/Acetaminophen [[place] 5-325] 1 tab PO Q8H PRN #30 tab 09/16/19 [Rx] Metoprolol Tartrate [Lopressor] 25 mg PO BID tab 09/16/19 [Rx] Sennosides-Docusate Sodium [Senokot-S] 2 each PO HS tab 09/16/19 [Rx] Follow up Appointment(s)/Referral(s): [facility], [NON-STAFF] - As Needed Isauro Christine MD [Primary Care Provider] - 09/20/19 9:30 am Karlos Lopez MD [Medical Doctor] - 09/29/19 1:15 pm (With Mer) Activity/Diet/Wound Care/Special Instructions: -Weight-bearing as tolerated on your operative leg. Up with a walker, up with assistance. -Continue posterior hip precautions. Keep abductor pillow in place at all times while in bed. -Keep operative dressing in place for 10 days. May shower over the dressing. -Elevate and ice operative leg to help reduce swelling and control pain. -Take pain medications as prescribed. Take Colace as a stool softener. Lovenox for 4 weeks postoperatively for blood clot prevention. -Follow-up appointment with Dr. Lopez in the office in 2 weeks. -Call the office with any questions or concerns, Discharge Disposition: TRANSFER TO SNF/ECF
== END 2019-09-16 14:41 | DRG 470 ==
LOC: EC 13:52 → 4SSUR 16:48
PROVIDERS: ADMIT Orthopaedic Surgery; ATTEND Orthopaedic Surgery
PROC: 0SRR0J9 Replacement of Right Hip Joint, Femoral Surface with Synthetic Substitute, Cemented, Open Approach (ICD-10-PCS; principal; 2019-09-14 13:00)
DX: S72.011A Unspecified intracapsular fracture of right femur, initial encounter for closed fracture (principal); N39.0 Urinary tract infection, site not specified; E78.5 Hyperlipidemia, unspecified; E03.9 Hypothyroidism, unspecified; G30.9 Alzheimer's disease, unspecified; F02.80 Dementia in other diseases classified elsewhere, unspecified severity, without behavioral disturbance, psychotic disturbance, mood disturbance, and anxiety; E55.9 Vitamin D deficiency, unspecified; I10 Essential (primary) hypertension; Z90.89 Acquired absence of other organs; Z87.891 Personal history of nicotine dependence; Z82.0 Family history of epilepsy and other diseases of the nervous system; Z80.1 Family history of malignant neoplasm of trachea, bronchus and lung; Z82.3 Family history of stroke; Z82.49 Family history of ischemic heart disease and other diseases of the circulatory system; Z83.3 Family history of diabetes mellitus; Z79.899 Other long term (current) drug therapy; Z79.890 Hormone replacement therapy
CPT/HCPCS: 36415; 71045; 72170; 73501; 73521; 80053; 81001; 85025; 85610; 85730; 86850; 86900; 86901; 88305; 88311; 93005; 96361; 96374; 96375; 99285